=== PATIENT | female | born 1955 | race American Indian/Alaskan Native ===

== ENCOUNTER 2018-05-21 05:48 | Day surgery (SDC) | payer MEDICARE ==
[2018-05-21 06:29] VITALS: BMI 38.4
[2018-05-21] MEDS ORDERED: Midazolam 2 MG/2 ML VIAL ONE (06:52)
[2018-05-21] MEDS ORDERED: Verapamil 2 ML ONE (07:02)
[2018-05-21] MEDS ORDERED: Nitroglycerin 50mg in D5W 50 MG/250 ML BOTTLE IV ONE (07:03)
--- NOTE | 2018-05-27 15:08 | CARDCATH ---
PROCEDURE DATE: 05/21/2018 PROCEDURES: 1. Left heart catheterization. 2. Coronary angiogram. CLINICAL INDICATIONS: 1. Angina. 2. Hypertension. 3. Hyperlipidemia. 4. Abnormal stress test. PERFORMING PHYSICIAN: Mike Vance MD PROCEDURE: After informed consent, the patient was prepped and draped in the usual sterile fashion. Lidocaine 2% was given in the right wrist for local anesthesia. Using micropuncture technique, 6 English sheath was introduced into the right radial artery. A 6-English JR4 diagnostic catheter engaged into the left ventricle. LV end-diastolic pressure measured. Contrast injected and LV angiogram was done. Then, the catheter was pulled back across the aortic valve. Gradient across the aortic valve was measured. Then, the same catheter engaged into right coronary artery. Contrast injected and right coronary angiogram was done. Then, the catheter exchanged into a 6-English [employer] catheter. The catheter engaged into left main coronary artery. Contrast injected and left coronary angiogram was done. The patient tolerated the procedure well. Postprocedure, Terumo radial band applied to right wrist with excellent hemostasis. FINDINGS: 1. Left main coronary artery is patent. 2. Proximal, mid LAD is patent. Diagonal branches are patent. Distal LAD has 50% diffuse intramuscular narrowing. 3. Left circumflex and obtuse marginal branches are patent. The patient has a left dominant system. 4. Right coronary artery is non-dominant, but patent. 5. LV ejection fraction is approximately 60%. No wall motion abnormalities noted. EDP is 14. No gradient across the aortic valve. IMPRESSION: 1. Nonobstructive coronary artery disease, as described above. 2. Normal left ventricular systolic function. PLAN: Recommend medical management. Mike Vance MD
== END 2018-05-21 11:20 | disposition home or self-care (01) ==
LOC: C.CATHLAB 05:48
PROVIDERS: ATTEND Internal Medicine Cardiovascular Disease
DX: I25.119 Atherosclerotic heart disease of native coronary artery with unspecified angina pectoris (principal); I10 Essential (primary) hypertension; E11.9 Type 2 diabetes mellitus without complications; R06.00 Dyspnea, unspecified; J44.9 Chronic obstructive pulmonary disease, unspecified; E78.5 Hyperlipidemia, unspecified
CPT/HCPCS: 93458; 99152; 99153; C1769; C1887; J1644; J2001; J2250; J3010; Q9967